=== PATIENT | female | born 1990 | race Caucasian/White ===

== ENCOUNTER 2017-04-13 19:53 | Emergency (ER) | payer SELFPAY ==
[2017-04-13] MEDS ORDERED: SODIUM CHLORIDE 0.9% 1000ML 1,000 ML IVS ONE ×2 (20:30→21:40)
[2017-04-13] MEDS ORDERED: ONDANSETRON INJ 4 MG/2 ML VIAL IV ONE ×2 (20:30→21:40)
--- NOTE | 2017-04-13 21:42 | ED.PDOC ---
History of Present Illness - General Chief Complaint: GI Problem Stated Complaint: nausea, diarrhea, vomiting x1 week Time Seen by Provider: 04/13/17 20:15 Information Source: patient, RN notes reviewed, Vital Signs reviewed Exam Limitations: no limitations - History of Present Illness Initial Comments: Patient comes to ER with c/o nausea, vomiting and diarrhea for the past week. She is vomiting ~ 4-5X/day and having diarrhea 3-4X/day. Denies abdominal or back pain. + low grade fever yesterday. + fatigue. Denies urinary symptoms. No chest pain or SOB. Abdominal Pain Onset Location: other - No pain Pain Radiation: no radiation Timing/Duration: 1 week Improving Factors: nothing Worsening Factors: nothing Associated Symptoms: diarrhea, fever/chills, fatigue, nausea/vomiting Review of Systems - Review of Systems Constitutional: States: chills, fever, malaise EENTM: States: no symptoms reported Respiratory: States: no symptoms reported. Denies: short of breath Cardiology: States: no symptoms reported. Denies: chest pain Gastrointestinal/Abdominal: States: see HPI, diarrhea, nausea, vomiting. Denies : abdominal pain Genitourinary: States: no symptoms reported. Denies: dysuria, frequency Musculoskeletal: States: no symptoms reported. Denies: back pain Skin: States: no symptoms reported Neurological: States: no symptoms reported. Denies: headache All other Systems: No Change from Baseline Past Medical History (General) - Patient Medical History Hx Stroke: No Hx Asthma: No Hx Congestive Heart Failure: No Hx Hypertension: No Hx Diabetes: No Hx MRSA: No MRSA Source:: Wound Surgical History: no surgical history - Vaccination History Hx Tetanus, Diphtheria Vaccination: Yes Hx Influenza Vaccination: Yes Hx Pneumococcal Vaccination: No - Social History Hx Tobacco Use: Yes Hx Chewing Tobacco Use: No Hx Alcohol Use: Yes - occ Hx Substance Use: No Hx Substance Use Treatment: No Hx Depression: No Feels Threatened In Home Enviroment: No Feels Threatened In a Relationship: No - Female History Patient : No Family Medical History - Family History Father Family History: No Known Living Status: Still Living Physical Exam - Physical Exam General Appearance: Alert, Comfortable, No apparent distress, Well Developed, Well Groomed, Well Nourished Eyes, Ears, Nose, Throat Exam: other - Dry mucous membranes Neck: non-tender, full range of motion, supple, normal inspection Respiratory: lungs clear, normal breath sounds, no respiratory distress, no accessory muscle use Cardiovascular/Chest: regular rate, rhythm, no edema, no gallop, no murmur Gastrointestinal/Abdominal: normal bowel sounds, soft, no organomegaly, tenderness - mild lower abdominal tenderness w/o guarding or rebound Back Exam: no CVA tenderness Extremity: normal range of motion, non-tender, normal inspection Neurologic: alert, normal mood/affect, oriented x 3 Skin Exam: normal color, warm/dry Comments: Vital Signs 04/13/17 20:09 Temperature 98.2 F Pulse Rate [ 105 H left] Respiratory 18 Rate Blood Pressure 135/92 [left] O2 Sat by Pulse 99 Oximetry Progress - Progress Progress: 04/13/17 21:40 Patient is feeling better after Zofran and 1L of NS but still mildly nauseated and no urge to urinate. Will give another 4mg of Zofran IV and another 1L NS bolus. 04/13/17 22:26 Patient reports she is feeling better and would like to go home. She has been up to the bathroom. - Results/Orders Results/Orders: Laboratory Tests 04/13/17 04/13/17 04/13/17 20:30 20:40 20:40 WBC 7.9 RBC 4.79 Hgb 15.5 Hct 46.1 MCV 96.3 MCH 32.4 H MCHC 33.6 RDW 13.0 Plt Count 306 MPV 8.1 Absolute Neuts (auto) 5.50 Absolute Lymphs (auto) 1.40 Absolute Monos (auto) 0.60 Absolute Eos (auto) 0.40 Absolute Basos (auto) 0.00 Neutrophils % 69.5 Lymphocytes % 17.8 L Monocytes % 7.3 Eosinophils % 4.9 Basophils % 0.5 Sodium 132 L Potassium 3.8 Chloride 98 L Carbon Dioxide 25 Anion Gap 12.8 BUN 19 H Creatinine 0.77 BUN/Creatinine Ratio 24.7 H Random Glucose 73 Serum Osmolality 265.4 L Calcium 9.1 Total Bilirubin 0.3 AST 44 H ALT 72 H Alkaline Phosphatase 66 Serum Total Protein 8.3 H Albumin 4.4 Globulin 3.9 H Albumin/Globulin Ratio 1.1 Urine Color Urine Appearance Urine pH Ur Specific [place] Urine Protein Urine Glucose (UA) Urine Ketones Urine Blood Urine Nitrite Urine Bilirubin Urine Urobilinogen Ur Leukocyte Esterase Urine RBC Urine WBC Ur Epithelial Cells Urine Bacteria Urine Mucus Urine HCG, Qual Negative 04/13/17 20:52 WBC RBC Hgb Hct MCV MCH MCHC RDW Plt Count MPV Absolute Neuts (auto) Absolute Lymphs (auto) Absolute Monos (auto) Absolute Eos (auto) Absolute Basos (auto) Neutrophils % Lymphocytes % Monocytes % Eosinophils % Basophils % Sodium Potassium Chloride Carbon Dioxide Anion Gap BUN Creatinine BUN/Creatinine Ratio Random Glucose Serum Osmolality Calcium Total Bilirubin AST ALT Alkaline Phosphatase Serum Total Protein Albumin Globulin Albumin/Globulin Ratio Urine Color Yellow Urine Appearance Clear Urine pH 6.0 Ur Specific [place] 1.025 Urine Protein Negative Urine Glucose (UA) Negative Urine Ketones Trace Urine Blood Small H Urine Nitrite Negative Urine Bilirubin Negative Urine Urobilinogen 0.2 Ur Leukocyte Esterase Negative Urine RBC 1-3 Urine WBC 0-1 Ur Epithelial Cells 1-3 Urine Bacteria Rare Urine Mucus Trace Urine HCG, Qual Departure - Departure Clinical Impression: Gastroenteritis Time of Disposition: 22:27 Disposition: Discharge to Home or Self Care Condition: Good Departure Forms: ED Discharge - Pt. Copy, Patient Portal Self Enrollment, Work Release Form Instructions: DI for Viral Gastroenteritis -- Adult Diet: resume usual diet Activity: increase activity as tolerated Prescriptions: Ondansetron Odt [Zofran ODT] 8 mg PO Q6HR PRN #20 tab PRN Reason: Nausea/Vomiting Home Medications: Ambulatory Orders Ondansetron Odt [Zofran ODT] 8 mg PO Q6HR PRN #20 tab 04/13/17 Additional Instructions: If diarrhea not resolved within another week follow up with your doctor.
[2017-04-13 22:42] VITALS: BP 119/80; TEMP 97.9; O2SAT 98
== END 2017-04-13 22:47 | disposition home or self-care (01) ==
LOC: ER 19:53
DX: K52.9 Noninfective gastroenteritis and colitis, unspecified (principal); Z87.891 Personal history of nicotine dependence
CPT/HCPCS: 36415; 36416; 80053; 81001; 81025; 85025; J2405; J7030

== ENCOUNTER 2017-06-04 07:30 | Emergency (ER) | payer SELFPAY ==
[2017-06-04] MEDS ORDERED: ONDANSETRON INJ 4 MG/2 ML VIAL ONE (07:38)
[2017-06-04] MEDS ORDERED: NALOXONE HCL INJ 1 MG/ML SYG IV ONE ×2 (07:44→09:42)
--- NOTE | 2017-06-04 07:52 | ED.PDOC ---
History of Present Illness - General Chief Complaint: Drug or Alcohol Abuse Stated Complaint: Heroin overdose Time Seen by Provider: 06/04/17 07:49 Source: RN notes reviewed - History of Present Illness Timing/Duration: unsure - PATIENT WAS DROPPED OFF IN A VAN BY 2 GUYS STATING SHE IS NOT BREATHING AFTER TAKING HEROIN THEY LEFT SOON AFTER NO DETAILS WERE GIVEN ABOUT ONSET DURATION EXT. Severity: severe - SHE WAS DROPPED OFF BY 2 MEN IN A VAN STATING SHE IS NOT BREATHING Allergies/Adverse Reactions: Allergies NO KNOWN ALLERGY Allergy (Verified 06/04/17 07:38) Home Medications: Ambulatory Orders NK [NK] 06/04/17 Review of Systems - Review of Systems Constitutional: States: see HPI EENTM: States: see HPI Respiratory: States: see HPI Cardiology: States: see HPI Gastrointestinal/Abdominal: States: see HPI Musculoskeletal: States: see HPI - PATIENT WAS IN ALTERED MENTAL STATUS TO OBTAIN ANY ROS Skin: States: see HPI Neurological: States: see HPI Endocrine: States: see HPI Hematologic/Lymphatic: States: see HPI Past Medical History (General) - Patient Medical History Hx Stroke: No Hx Asthma: No Hx Congestive Heart Failure: No Hx Hypertension: No Hx Diabetes: No Hx MRSA: No MRSA Source:: Wound - Vaccination History Hx Tetanus, Diphtheria Vaccination: Yes Hx Influenza Vaccination: Yes Hx Pneumococcal Vaccination: No - Social History Hx Tobacco Use: Yes Hx Chewing Tobacco Use: No Hx Alcohol Use: Yes - occ Hx Substance Use: No Hx Substance Use Treatment: No Hx Depression: No - Female History Patient : No Family Medical History - Family History Father Family History: No Known Living Status: Still Living Physical Exam - Physical Exam General Appearance: Lethargic, Unkempt, Other - OBTUNDED NOT ANSWERING QUESTIONS BRADYAPNIC Eye Exam: right normal Ears, Nose, Throat: normal ENT inspection Neck: non-tender, full range of motion Respiratory: lungs clear - DECREASED RESPIRATORY EFFORTS Cardiovascular/Chest: normal peripheral pulses, regular rate, rhythm, no edema, no gallop, no JVD, no murmur Peripheral Pulses: radial,right: 2+, radial,left: 2+, femoral,right: 2+, femoral ,left: 2+ Gastrointestinal/Abdominal: non tender, no organomegaly, no pulsatile mass Rectal Exam: deferred Back Exam: no CVA tenderness Extremity: normal range of motion Neurologic: games dealer II-XII nml as tested, disoriented x 3 Skin Exam: normal color, warm/dry Lymphatic: no adenopathy Progress - Progress Progress: 06/04/17 07:57 PT WAS TAKEN TO THE TREATMENT ROOM PLACED ON MONITOR WAS STARTED AN IV LINE IN THE LEFT FOREARM GIVEN 2 MG OF NARCAN WITHIN FEW MIN SHE RESPONDED PULLING HER OXYGEN MASK AND SHE ADMITTED TO USING HEROIN LAST NIGHT AND STATED THIS IS HER FIRST TIME HOWEVER ADMITS TO USING AMPHETAMINE FOR LONG TIME SHE ALSO MENTIONED THAT SHE IS CHECKING INTO A REHAB FACILTITY COMING TUESDAY Departure - Departure Clinical Impression: Drug abuse, Drug dependence Disposition: Discharge to Home or Self Care Condition: Good Departure Forms: ED Discharge - Pt. Copy, Patient Portal Self Enrollment Activity: walking as tolerated Home Medications: Ambulatory Orders NK [NK] 06/04/17
[2017-06-04 08:06] VITALS: TEMP 97.7
[2017-06-04] MEDS ORDERED: ACETAMINOPHEN 500 MG TAB PO ONE (08:17)
[2017-06-04] MEDS ORDERED: ONDANSETRON INJ 4 MG/2 ML VIAL IV ONE (08:29)
[2017-06-04] MEDS ORDERED: SODIUM CHLORIDE 0.9% 1000ML 1,000 ML IVS ONE (09:43)
[2017-06-04] MEDS ORDERED: ONDANSETRON ODT 8 MG TAB ONE (10:45)
[2017-06-04] MEDS ORDERED: ONDANSETRON ODT 8 MG TAB SL ONE (10:47)
[2017-06-04 12:00] VITALS: BP 122/85; O2SAT 100
== END 2017-06-04 11:15 | disposition home or self-care (01) ==
LOC: ER 07:30
DX: F19.20 Other psychoactive substance dependence, uncomplicated (principal); R41.82 Altered mental status, unspecified; L03.115 Cellulitis of right lower limb; Z87.891 Personal history of nicotine dependence
CPT/HCPCS: 36415; 80048; 80307; 81001; 85025; 87086; 92950; J2310; J2405; J7030

== ENCOUNTER 2017-07-15 16:59 | Emergency (ER) | payer SELFPAY ==
--- NOTE | 2017-07-15 17:50 | ED.PDOC ---
History of Present Illness - General Chief Complaint: Skin/Abrasion/Tear Stated Complaint: abrasion Time Seen by Provider: 07/15/17 17:03 Source: patient Exam Limitations: no limitations - History of Present Illness Initial Comments: Melanie Lir 27 y/o female seen today with tender swelling right forearm for 3 days. Timing/Duration: other - see hpi Severity: mild Location: extremities Improving Factors: rest Worsening Factors: movement Associated Symptoms: change in skin texture, other - see hpi Allergies/Adverse Reactions: Allergies NO KNOWN ALLERGY Allergy (Verified 06/04/17 07:38) Home Medications: Ambulatory Orders Sulfa/Trimeth 800/160 (Ds) Tab [Bactrim DS Tab] 1 ea PO Q12HR #20 tab 06/04/17 Clindamycin HCl [Cleocin] 300 mg PO BID #30 cap 07/15/17 Review of Systems - Review of Systems Skin: States: see HPI All other Systems: Reviewed and Negative, No Change from Baseline Past Medical History (General) - Patient Medical History Hx Stroke: No Hx Asthma: No Hx Congestive Heart Failure: No Hx Hypertension: No Hx Diabetes: No Hx MRSA: No Hx Other PMH: Yes - heroin OD MRSA Source:: Wound - Vaccination History Hx Tetanus, Diphtheria Vaccination: Yes Hx Influenza Vaccination: Yes Hx Pneumococcal Vaccination: No - Social History Hx Tobacco Use: Yes Hx Chewing Tobacco Use: No Hx Alcohol Use: Yes - occ Hx Substance Use: Yes - polysubstance use Hx Substance Use Treatment: No Hx Depression: No Hx Physical Abuse: No Hx Emotional Abuse: No Hx Suspected Abuse: No - Female History Patient is a Female of Child Bearing Age (10 -59 yrs old): Yes Hx Last Menstrual Period: 06/14/17 Patient : No Family Medical History - Family History Father Family History: No Known Living Status: Still Living Physical Exam - Physical Exam General Appearance: Alert, Comfortable, No apparent distress Eyes, Ears, Nose, Throat Exam: normal ENT inspection Neck: non-tender, supple Cardiovascular/Chest: regular rate, rhythm, no murmur Respiratory: lungs clear, normal breath sounds Gastrointestinal/Abdominal: non tender, soft, no organomegaly Back Exam: normal inspection Extremity: non-tender Neurologic: alert, oriented x 3 Skin Exam: warm/dry, normal color Skin Problem Location: upper extremities - right forearm Skin Character: abscess - right forearm Lymphatic: no adenopathy Progress - Results/Orders Results/Orders: Last Vital Signs Temp 98.1 F 07/15/17 17:23 Pulse 98 H 07/15/17 17:23 Resp 16 07/15/17 17:23 BP 113/74 07/15/17 17:23 Pulse Ox 96 07/15/17 17:23 Procedures - Image Front/Back of Body: 1 - right forearm - Incision and Drainage #1 Site: right forearm Procedure and Prep: sterile drapes applied, sterile dressings applied, gauze wick placed, irrigated, wound culture collected, pus drained Blade Size: 11 Procedure Comments: Used hibiclens for skin prep Departure - Departure Clinical Impression: Abscess of skin and subcutaneous tissue Qualifiers: Site of cutaneous abscess: extremity Site of cutaneous abscess of extremity: upper extremity Laterality: right Qualified Code(s): L02.413 - Cutaneous abscess of right upper limb Time of Disposition: 20:02 Disposition: Discharge to Home or Self Care Condition: Fair Departure Forms: ED Discharge - Pt. Copy, Patient Portal Self Enrollment Instructions: DI for Incision and Drainage of a Skin Abscess, DI for Skin Abscess Prescriptions: Clindamycin HCl [Cleocin] 300 mg PO BID #30 cap Home Medications: Ambulatory Orders Sulfa/Trimeth 800/160 (Ds) Tab [Bactrim DS Tab] 1 ea PO Q12HR #20 tab 06/04/17 Clindamycin HCl [Cleocin] 300 mg PO BID #30 cap 07/15/17 Additional Instructions: REMOVAL OF PACKING TOMORROW PM [facility] - ER or DIY 07/16/2017 May take ALEVE 1-2 tablets am/pm for pain swelling(over the counter)
[2017-07-15] MEDS ORDERED: CLINDAMYCIN HCL CAP 150 MG CAP PO ONE (17:58)
[2017-07-15] MEDS ORDERED: TETANUS,DIPHTHERIA,PERTUSSIS 1 EA SYG IM ONE (17:58)
[2017-07-15] MEDS ORDERED: CLINDAMYCIN PHOSPHATE 150 MG/ML VIAL IM ONE (17:58)
[2017-07-15] MEDS ORDERED: LIDOCAINE 1% W/ EPINEPHRINE 20 ML VIAL INJ ONE (19:27)
[2017-07-15] MEDS ORDERED: NEOMYCIN-BACITRACIN-POLYMYXIN 0.9 GM UD TOP ONE (19:33)
[2017-07-15] MEDS ORDERED: CHLORHEXIDINE GLUCONATE 4 % 15 ML UD TOP ONE (19:34)
[2017-07-15] MEDS ORDERED: HYDROcodone 10MG/APAP 325MG 1 EA TAB PO ONE (20:03)
[2017-07-15 20:18] VITALS: BP 115/76; TEMP 98.6; O2SAT 98
== END 2017-07-15 20:19 | disposition home or self-care (01) ==
LOC: ER 16:59
DX: L02.413 Cutaneous abscess of right upper limb (principal); Z87.891 Personal history of nicotine dependence
CPT/HCPCS: 87070; 90471; 90715; J3490

== ENCOUNTER 2017-08-06 16:09 | Emergency (ER) | payer SELFPAY ==
[2017-08-06 16:18] VITALS: BP 125/84; TEMP 96.7; O2SAT 100
--- NOTE | 2017-08-06 16:21 | ED.PDOC ---
History of Present Illness - General Chief Complaint: Allergic Reaction Stated Complaint: possible allergic reaction Time Seen by Provider: 08/06/17 16:20 Source: patient Exam Limitations: no limitations - History of Present Illness Initial Comments: Melanie Lir 27 y/o female taking oxcarbazepine for the last 4 days for her mood disorder came today feeling throat been feeling swelled up feels SOB and shaky since taking medications.Called up MR advised to stop medication and take Benadryl but decided to come here.Has also painful sores base of tongue. Timing/Duration: 24 hours Severity: moderate Improving Factors: nothing Worsening Factors: medication Associated Symptoms: other - see hpi Allergies/Adverse Reactions: Allergies NO KNOWN ALLERGY Allergy (Verified 06/04/17 07:38) Home Medications: Ambulatory Orders Fluoxetine HCl [PROzac] 20 mg PO DAILY 08/06/17 OXcarbazepine [Trileptal] 300 mg PO BEDTIME 08/06/17 Trazodone HCl 100 mg PO BEDTIME 08/06/17 Review of Systems - Review of Systems Constitutional: States: no symptoms reported EENTM: States: no symptoms reported Respiratory: States: see HPI Cardiology: States: no symptoms reported Gastrointestinal/Abdominal: States: no symptoms reported Skin: States: no symptoms reported Neurological: States: emotional problems Past Medical History (General) - Patient Medical History Hx Stroke: No Hx Asthma: No Hx Congestive Heart Failure: No Hx Hypertension: No Hx Diabetes: No Hx MRSA: No Hx Other PMH: Yes - bipolar disorder MRSA Source:: Wound Surgical History: no surgical history - Vaccination History Hx Tetanus, Diphtheria Vaccination: Yes Hx Influenza Vaccination: Yes Hx Pneumococcal Vaccination: No - Social History Hx Tobacco Use: Yes Hx Chewing Tobacco Use: No Hx Alcohol Use: Yes - occ Hx Substance Use: Yes - polysubstance use Hx Substance Use Treatment: No Hx Depression: No Hx Physical Abuse: No Hx Emotional Abuse: No Hx Suspected Abuse: No - Activities of Daily Living Patient Lives Alone: No - family - Female History Patient is a Female of Child Bearing Age (10 -59 yrs old): Yes Hx Last Menstrual Period: 06/30/17 Patient : No Family Medical History - Family History Father Family History: No Known Living Status: Still Living Physical Exam - Physical Exam General Appearance: Alert, Comfortable, No apparent distress Eye Exam: bilateral normal Ears, Nose, Throat: normal ENT inspection, normal pharynx, other - aphthae like eruption base of tongue Progress - Progress Progress: 08/06/17 16:33 Last Vital Signs Temp 96.7 F L 08/06/17 16:16 Pulse 101 H 08/06/17 16:16 Resp 20 08/06/17 16:16 BP 125/84 08/06/17 16:16 Pulse Ox 100 08/06/17 16:16 Departure - Departure Clinical Impression: Fever blister Allergic reaction caused by a drug Qualifiers: Encounter type: initial encounter Qualified Code(s): T78.40XA - Allergy, unspecified, initial encounter Time of Disposition: 16:36 Disposition: Discharge to Home or Self Care Condition: Good Departure Forms: ED Discharge - Pt. Copy, Patient Portal Self Enrollment Instructions: Cold Sores, DI for Cold Sores, DI for General Allergic Reactions Activity: other - AVOID HOT SPICY FOODS Home Medications: Ambulatory Orders Fluoxetine HCl [PROzac] 20 mg PO DAILY 08/06/17 OXcarbazepine [Trileptal] 300 mg PO BEDTIME 08/06/17 Trazodone HCl 100 mg PO BEDTIME 08/06/17 Additional Instructions: Stop taking oxcarbazepine;Follow up with [facility] for medication change;Continue with Benadryl 25 mg 1-2 capsule 3 x a day as needed.Return to emergency room as needed Magic mouth wash as directed until better.
[2017-08-06] MEDS ORDERED: DEXAMETHASONE INJ 4 MG/ML VIAL IM ONE (16:34)
[2017-08-06] MEDS ORDERED: diphenhydrAMINE HCL 50 MG/ML VIAL IM ONE (16:34)
== END 2017-08-06 16:55 | disposition home or self-care (01) ==
LOC: ER 16:09
DX: R06.02 Shortness of breath (principal); T42.1X5A Adverse effect of iminostilbenes, initial encounter; B00.1 Herpesviral vesicular dermatitis; F31.9 Bipolar disorder, unspecified; Z87.891 Personal history of nicotine dependence
CPT/HCPCS: J1100; J1200